=== PATIENT | male | born 1985 | race Caucasian/White ===

== ENCOUNTER 2025-02-27 17:26 | Emergency (ER) | payer OTHER, SELFPAY ==
[2025-02-27 17:34] VITALS: BP 150/97
[2025-02-27 18:04] LABS: Hematocrit 40.8 % (39.0-52.0); Hemoglobin 14.6 g/dL (13.0-18.0); Mean Corp Hgb Conc. 35.8 g/dL (33.0-37.0); Mean Corpuscular Volume 85.9 fL (80.0-94.0); Nucleated Red Blood Cells % 0 % (-); Platelet Count 200 10^3/uL (130-400); Red Cell Dist. Width 12.2 % (11.5-14.5)
[2025-02-27 18:07] VITALS: BP 123/80
[2025-02-27 18:10] VITALS: BP 123/80
[2025-02-27 18:12] VITALS: BMI 31.1
[2025-02-27 18:15] LABS: ALT (SGPT) 88 U/L (0-50); AST (SGOT) 62 U/L (17-59); Albumin 4.6 g/dl (3.5-5.0); Alkaline Phosphatase 71 U/L (38-126); Blood Urea Nitrogen 12 mg/dl (9-20); Calcium 9.0 mg/dl (8.4-10.2); Carbon Dioxide 25 mmol/L (22-30); Chloride 106 mmol/L (98-107); Estimated Creatinine Clearance > 125 ml/min; Glucose 103 mg/dl (70-99); Potassium 3.6 mmol/L (3.5-5.1); Sodium 139 mmol/L (135-145); Total Protein 7.9 g/dl (6.3-8.2); eGFR > 60.00
[2025-02-27 18:26] LABS: Troponin I < 0.012 ng/ml
[2025-02-27 19:00] VITALS: BP 115/78
--- NOTE | 2025-02-27 19:24 | ED.GENMED ---
History of Present Illness
General
Chief Complaint: Chest Problem
Source: patient
Time Seen by Provider: 02/27/25 19:08
History of Present Illness
History of Present Illness:
40-year-old male presents to the emergency room complaining of pain in the center of his chest and upper abdomen. Pain began yesterday and was worse today. Patient thought his discomfort may be related to lifting heavy objects at [employer] where he
began working 2 days ago. Pain was fairly significant during the night and early this morning. It seems a bit better now. No shortness of breath. Pain is not related to exertion. No previous episodes of pain like this before. Patient denies
alcohol, drug use. No fever or chills. He does not take any prescription medications.
Past History
Past History
ED Past Medical History: None
ED Past Surgical History: None
Social History
Living: with family
Phy Exam
Physical Exam
Physical Exam:
General: Awake, Alert, Oriented X3. No acute distress.
Vitals: unremarkable
Head: Atraumatic
Eyes: Pupils equal, EOMI
Throat: Airway intact, no exudates
Neck: Trachea midline
Lungs: Clear and equal b/l
Heart: Regular rate, no murmurs
Abd: Soft, some epigastric tenderness, No pulsatile mass
Neuro: Nonfocal l
Skin: Warm, dry, no rash
Extremities: pulses equal b/l, no edema
Course
Orders/Labs/Results
Orders:
Orders
02/27/25 17:27
ECG [Electrocardiogram (*1)] Urgent
Reason for Study: Chest Pain
EKG- Treatment ONCE
02/27/25 17:37
CR Chest - 2 Views Urgent
Comment:
Reason For Exam: SOB
02/27/25 17:52
Complete Blood Count/With Diff Urgent
Comprehensive Metabolic Panel Urgent
NT-proBNP Urgent
Troponin I Urgent
02/27/25 19:22
Ketorolac [Toradol] 30 mg IM NOW STA
US Abdomen Complete/Upper Urgent
Comment:
Reason For Exam: upper abd pain, elevated lfts
Abnormal Lab Results
02/27/25
17:52
Glucose 103 H mg/dl
(70-99)
AST 62 H U/L
(17-59)
ALT 88 H U/L
(0-50)
02/27/25 17:52
02/27/25 17:52
Vital Signs
Initial and Last Documented VS:
Initial Vital Signs
Temp Pulse Resp BP Pulse Ox
98.4 F 71 20 150/97 98
02/27/25 17:34 02/27/25 17:34 02/27/25 17:34 02/27/25 17:34 02/27/25 17:34
Last Documented Vital Signs
Temp Pulse Resp BP Pulse Ox
98.0 F 60 18 115/78 99
02/27/25 18:10 02/27/25 20:30 02/27/25 20:30 02/27/25 19:00 02/27/25 20:30
MDM/Problems Addressed
Differential Diagnosis Includes:
Abdominal muscle strain, chest wall strain, spontaneous pneumo, cholecystitis
MDM/Problems Addressed:
Patient presents with chest pain and upper abdominal pain that has been present for the past day or so. Certainly may be related to his heavy lifting but is LFTs are mildly elevated. He has some mild upper abdominal tenderness. Will obtain an
ultrasound to exclude cholelithiasis or cholecystitis.
Ultrasound shows fatty liver but no other abnormalities. Overall presentation most consistent with muscle strain. Recommend Tylenol and NSAIDs. Rest.
*Radiology
Radiology exam reviewed: preliminary read by ED provider (No acute disease by my review of the patient's chest x-ray)
*Pulse Oximetry
SaO2: 98
Oxygen Mode of Delivery: Room air
Patient hypoxic: no
*EKG
Interpreted by ED Provider?: Yes
Interpretation: normal
Heart Rate: 66
Rate: normal
Rhythm: sinus
Reliance: normal axis
Interval: normal interval
QRS Pattern: normal QRS
Ischemia: no ischemia
*[employer] Interpretation
Rate: normal
Interpretation: normal
Heart Rate: 66
Rhythm: sinus
*Critical Care Note
Total Time (30-74mins, 75-104mins- exclusive of procedures): Not Applicable
ED Attending Note
-
Portions of this chart may have been created with voice recognition software.� Occasional wrong word or��sound alike� substitutions may have occurred due to the inherent limitations of voice recognition software.
Discharge Plan
Departure
Patient Disposition: Home (Routine Discharge)
Date of Disposition: 02/27/25
Time of Disposition: 20:28
Patient with high blood pressure during this ER visit?: No
Condition: Good
Discharge Problem:
Acute chest wall pain, Muscle strain
Instructions: Muscle strain
Prescriptions:
No Action
levofloxacin 500 MG tablet
500 mg PO DAILY Qty: 8 0RF
meclizine 12.5 MG tablet
12.5 mg PO Q8HPRN PRN (Reason: vertigo) Qty: 15 0RF
Referrals:
Sophia Tello MD [Primary Care Provider]
Stand Alone Forms: Return to Work
Interventions
Interventions:
*Risk Screen - Suicide Last Done: 02/27/25 20:36
*General Assessment Last Done: 02/27/25 17:34
*Neglect/Abuse Screening Last Done: 02/27/25 19:07
*ED- Fall Risk Assessment Last Done: 02/27/25 19:07
*ED COVID-19 Vaccine History Last Done: 02/27/25 19:07
*Nursing Disposition Last Done: 02/27/25 20:36
ED- Cardiac Assessment Last Done: 02/27/25 19:08
ED- Pulmonary Assessment Last Done: 02/27/25 19:08
Discharge Date and Time
Discharge Date/Time: 02/27/25 20:49
Print Language: [id number]
[2025-02-27] MEDS: TORADOL 30 MG IM (19:34)
== END 2025-02-27 20:49 | disposition home or self-care (01) ==
LOC: EMR 17:26
PROVIDERS: Emergency Medicine; EMERGENCY PHYSICIAN Emergency Medicine; PRIMARYCARE PHYSICIAN Internal Medicine
DX: R07.89 Other chest pain (principal)
CPT/HCPCS: 99284; 96372; 71046; 76700; 80053; 83880; 84484; 85025; 93005